=== PATIENT | male | born 1980 | race Caucasian/White ===

== ENCOUNTER 2016-05-08 18:34 | Emergency (ER) | payer MEDICAID ==
[~2016-05-08] VITALS: Ht 170.2 cm; Wt 65.0 kg
[~2016-05-08 18:34] MED LIST: CYCL-36 PO; LORT5TAB PO; Z.0.NO CURRENT MEDS
[2016-05-08 18:36] VITALS: BP 137/84; PULSE 77; RESP 16; TEMP 97.6; O2SAT 98
--- NOTE | 2016-05-08 19:31 | PD ---
HPI Chief Complaint: Injury Time Seen by Provider: 19:25 Travel History International Travel<30 days: No Contact w/Intl Traveler<30days: No Traveled to known affect area: No History of Present Illness HPI Patient comes in complaining of right thumb pain began yesterday after getting it slammed in a car door. Patient complaining of pain primarily over the DIP joint of the right thumb. Pain is worse with palpation and movement. Patient using [id number] finger splint with little to no improvement for symptoms along with taking Advil. Patient describes pain is throbbing aching like in nature without radiation. Denies any numbness or tingling. PFSH Past Medical History Medical History: Denies Significant Hx Social History Alcohol Use: No Tobacco Use: No Substance Use: No Allergies-Medications (Allergen,Severity, Reaction): Coded Allergies: No Known Allergies (Unverified , 03/22/11) Reported Meds & Prescriptions Reported Meds & Active Scripts Active Naprosyn (Naproxen) 500 Mg Tab 500 Mg PO Q12HR PRN Lortab 5/500 (Acetaminophen/Hydrocodone Bitart) 5 Mg/500 Mg Tab 1 Tab PO Q4HPRN FOR PAIN Flexeril (Cyclobenzaprine HCl) 10 Mg Tab 10 Mg PO TID Reported No Current Meds (Miscellaneous Medication) Misc Review of Systems Except as stated in HPI: all other systems reviewed are Neg Physical Exam Narrative GENERAL: Well-developed, well nourished, in no acute distress, and non-ill appearing. SKIN: Warm and dry. HEAD: Atraumatic. Normocephalic. EYES: Pupils equal and round. EOMI. No scleral icterus. No injection or drainage. ENT: No nasal bleeding or discharge. Mucous membranes pink and moist. NECK: Trachea midline. Supple. No nuclear rigidity. CARDIOVASCULAR: Capillary refill less than 2 seconds. RESPIRATORY: No accessory muscle use. No respiratory distress. MUSCULOSKELETAL: No obvious deformities. No clubbing. No cyanosis. No edema. Full range of motion. Wrist: FROM and equal BL with passive flexion, extension, and pronation/supination. Capillary refill less than 2 seconds distal to injury and equal BL. FROM distal to injury and equal BL. Strength distal to injury equal BL. NV intact distal to injury. Flexion and extension of thumb equal BL. Equal strength and movement with abduction/adductions of BL fingers. Ict Managers strength equal BL. No tenderness to the anatomical snuffbox. Patient reports tenderness to palpation over the DIP joint right thumb. There is a split down the right thumbnail the patient reports was there prior to this injury. NEUROLOGICAL: Awake and alert. No obvious cranial nerve deficits. Motor grossly within normal limits. Normal speech. PSYCHIATRIC: Appropriate mood and affect; insight and judgment normal. Data Data Last Documented VS Vital Signs Date Time Temp Pulse Resp B/P Pulse Ox O2 Delivery O2 Flow Rate FiO2 05/08/16 18:36 97.6 77 16 137/84 98 Room Air Orders Finger ([id number]) (05/08/16 ) Ice/Cold Pack (05/08/16 19:01) Splint Or Brace Apply/Monitor (05/08/16 19:25) Fiberglass Thumb Spica Adult (05/08/16 ) MDM Medical Decision Making Medical Screen Exam Complete: Yes Emergency Medical Condition: Yes Interpretation(s) X-rays obtained reviewed. Shows no acute bony abnormality. Radiologist to over read. Differential Diagnosis Fracture, sprain, contusion, other Narrative Course The patient appears to have suffered a contusion of the extremity. There is no clinical evidence to suspect bony injury by exam. Radiographic examination revealed no fracture seen at this time. The patient has full range of motion on active and passive motions. There is no significant edema. There is no proximal or distal joint effusion. The distal extremity appears neurovascularly intact, without evidence of neurovascular injury nor compartment syndrome. Tendon exam also was intact. The patient was discharged on pain medication instructions and given warnings for vascular compromise. The patient is to follow up with their regular physician or hand surgeon. The patient agrees with plan. Patient in no obvious distress upon re-evaluation. All pertinent Radiology result(s) discussed with patient. Patient was asked if they wanted to speak to my attending, which the patient did not wish to do at this time. Any questions/ concerns in reference to patient diagnosis/condition discussed and clarified prior to patient's discharge. Reinforced sheer importance of close follow up with patient's primary physician or primary care clinic. Instructed patient to return to ED immediately, if symptoms return/worsen. Pt showed understanding of above instructions. Further instructions and recommendations were detailed in discharge paperwork. Pt ambulated without difficulty out of ED at discharge. Diagnosis Primary Impression: Contusion of right thumb Qualified Code: S60.011A - Contusion of right thumb without damage to nail, initial encounter Referrals: Lilia Souza MD Patient Instructions: Contusion in Adults (DC), General Instructions, Splint Care (DC) Additional Instructions: Follow-up with Dr. Souza in 3-4 days for reevaluation. Call her office on Wednesday for an appointment. Take all medication as prescribed. Apply ice affected area 20 minutes per hour as needed for pain. Elevate the affected hand as often as possible decrease pain and swelling. Return to the emergency department if symptoms get worse. Med/Other Pt SpecificInfo: Prescription(s) given Scripts Naproxen (Naprosyn)500 Mg [id number] Mg PO Q12HR PRN (PAIN SCALE 1 TO 10) #14 TAB Ref 0 Prov:Chidi Mcgrath MD 05/08/16 Disposition: 01 DISCHARGE HOME Condition: Stable Kevin Hicks May 08, 2016 19:31
--- NOTE | 2016-05-08 19:31 | RADRPT ---
EXAM DATE/TIME: 05/08/2016 18:59 [facility] COMPARISON: No previous studies available for comparison. INDICATIONS : Right hand first digit pain. MEDICAL HISTORY : None. SURGICAL HISTORY : None. ENCOUNTER: Initial ACUITY: 2 days PAIN SCORE: 7/10 LOCATION: distal thumb. FINDINGS: Examination of the first digit of the right hand demonstrates no evidence of fracture or dislocation. No radiopaque foreign bodies are seen. The soft tissues are intact. CONCLUSION: Unremarkable exam. Marty Tijerina MD on May 08, 2016 at 19:30 Board Certified Radiologist. This report was verified electronically.
[2016-05-08] MEDS ORDERED: NAPR500 PO (19:32)
== END 2016-05-08 19:58 | disposition home or self-care (01) ==
LOC: NEPB 18:34
DX: S60.011A Contusion of right thumb without damage to nail, initial encounter (principal); W23.1XXA Caught, crushed, jammed, or pinched between stationary objects, initial encounter
CPT/HCPCS: 73140; 99283; L3808